=== PATIENT | male | born 1945 | race Caucasian/White ===

== ENCOUNTER 2016-12-22 10:23 | Day surgery (SDC) | payer OTHER ==
[~2016-12-22] VITALS: Ht 165.1 cm; Wt 79.5 kg
[~2016-12-22 10:23] MED LIST: CEFAZOLIN 1000MG/55 ML D5W 55 ML IV SCH; PATIENT'S ALLERGY INFO NEEDS ENTERED SCH; PATIENT'S HEIGHT AND/OR WEIGHT NEEDED SCH
--- NOTE | 2016-12-22 10:40 | History & Physical Bridge Note ---
H&P Re-Evaluation Bridge Note: I have examined the patient, reviewed the History & Physical and in the interval since the performance of the History & Physical I have noted the following changes of clinical significance: No changes noted
[2016-12-22 10:41] VITALS: Ht 165.1 cm; Wt 79.5 kg
[2016-12-22] MEDS ORDERED: BUPIVACAINE 0.5 % 5 MG/1 ML MPF 30ML VIAL ONE (10:41)
[2016-12-22] MEDS ORDERED: BACITRACIN 50000 UNIT VIAL ONE (10:41)
[2016-12-22] MEDS ORDERED: LIDOCAINE HCL 1% 20 ML VIAL ONE (10:41)
--- NOTE | 2016-12-22 10:41 | Procedure Note ---
Pre-Mod Sedation Assessment General Date of Moderate Sedation: Dec 22, 2016. Review Cardiovascular: regular rate, rhythm Abdomen: soft Lungs: lungs clear Airway Class: II Pre-Sedation Airway Assessment Oral Cavity: WNL Able to Visualize Vocal Cords: No Short Thick Neck: No Smoking Status: Former Smoker Mallampati Classification: Class II ASA Classification: Class II Procedure Planning Contraindications-for Mod Sed: None Yes Notes The planned sedation has been discussed with the patient and consent obtained. I have identified the patient, determined the appropriateness of sedation and have assessed the patient immediately prior to the procedure. All medicine(s) and interventions are by my order.
[2016-12-22] MEDS ORDERED: DILT120T3 PO (10:57)
[2016-12-22] MEDS ORDERED: WARF2.5T8 PO (10:57)
[2016-12-22] MEDS ORDERED: METO1TAB69 PO (10:57)
[2016-12-22] MEDS ORDERED: ALBU18002 INH (10:57)
[2016-12-22] MEDS ORDERED: DRON400T PO (10:57)
[2016-12-22] MEDS ORDERED: PANT40TA PO (10:57)
[2016-12-22] MEDS ORDERED: ATOR-22 PO (10:57)
[2016-12-22] MEDS ORDERED: POTA20TA16 PO (10:57)
[2016-12-22] MEDS ORDERED: ASPI81TA28 PO (10:57)
[2016-12-22] MEDS ORDERED: FLVHFA110 INH (10:57)
[2016-12-22] MEDS ORDERED: NTRGSL/4 UT (10:57)
[2016-12-22] MEDS ORDERED: ACET-1311 PO (10:57)
[2016-12-22] MEDS ORDERED: RANI150T3 PO (10:57)
[2016-12-22] MEDS ORDERED: [UNRECOGNIZED DRUG - OTHER] PO (10:57)
[2016-12-22] MEDS ORDERED: FENO67CA2 PO (10:57)
[2016-12-22 11:03] VITALS: BP 138/79; PULSE 60; TEMP 36.8; O2SAT 96
[2016-12-22] MEDS ORDERED: FENTANYL CITRATE INJ 50 MCG/1 ML 2 ML VIAL ONE (11:25)
[2016-12-22] MEDS ORDERED: MIDAZOLAM HCL 5 MG/ML 1 ML VIAL ONE (11:25)
--- NOTE | 2016-12-22 12:09 | [facility] Post Operative Brief Note ---
Immediate Operative Summary Operative Date Dec 22, 2016. Pre-Operative Diagnosis SND, PPM AT KAILEE Post-Operative Diagnosis SAME Procedure(s) Performed DUAL CHAMBER RATE RESPONSIVE PPM GENERATOR CHANGE Surgeon ABHINAV LOPEZ Broth Setter Surgeon(s) NONE Estimated Blood Loss <5CC Findings SEE OFFICIAL REPORT Fluids (cc crystalloids) 200 Specimens NONE Drains NONE Anesthesia 2MG VERSED AND 50MCG FENTANYL Complication(s) None Disposition MTU
--- NOTE | 2016-12-22 12:09 | Procedure Note ---
Post-Mod Sedation Assessment General Date of Moderate Sedation Dec 22, 2016. Vital Signs: Vital Signs Past 12 Hours Date Time Temp Pulse Resp B/P (MAP) Pulse Ox O2 Delivery O2 Flow Rate FiO2 12/22/16 12:01 60 16 111/71 (84) 93 Oxymask 15 12/22/16 11:03 36.8 60 18 138/79 (98) 96 Room Air Review - Discharge Criteria Vital Signs Stable: Yes Alert/Oriented/Conversant: Yes Returned to Baseline Mental St: Yes Nausea Absent/Minimal: Yes Pain/Discomfort/Absent/Minimal: Yes Normal/Baseline Respirations: Yes Active Bleeding?: No Pt Received D/C Instructions: N/A Prescriptions Given: None Specific Proced. D/C Criteria Distal Pulses Present (Cardiac: N/A Groin site assessed-Card Cath: N/A Voided Prior To Discharge: N/A Discharged Patients Adult Escort/Transportation: N/A
--- NOTE | 2016-12-22 12:12 | Discharge Instructions ---
Discharge Instructions Date of Service Dec 22, 2016. Visit Reason for Visit: AFIB Discharge Discharge Diagnosis / Problem: SND, PPM AT KAILEE Discharge Goals Goal(s): Improve function Medications Stopped Medications Name(s): NONE Activity Recommendations Activity Limitations: as noted below Lifting Limitations: no more than 10 pounds (DO NOT LIFT MORE THAN 10 POUNDS WITH THE LEFT ARM FOR 2 WEEKS) Exercise/Sports Limitations: as tolerated May Resume Sexual Activity: after one week Shower/Bathe: tomorrow Driving or Machine Use: resume 1 day after discharge Anesthesia . Post Anesthesia Instructions: If you have had General Anesthesia or IV Sedation: * Do not drive today. * Resume driving when surgeon permits. * Do not make important decisions or sign legal documents today. * Call surgeon for: 1. Temperature elevations greater than 101 degrees F. 2. Uncontrollable pain. 3. Excessive bleeding. 4. Persistent nausea and vomiting. 5. Medication intolerance (nausea, vomiting or rash). * For nausea and vomiting use only clear liquids such as: tea, soda, bouillon until nausea subsides, then gradually increase diet as tolerated. * If you have any concerns or questions, call your surgeon's office. If physician is unavailable and it is an emergency, call 911 or go to the nearest emergency room. . Instructions / Follow-Up Instructions / Follow-Up ACTIVITY RECOMMENDATIONS: * Do not lift more than 10 pounds with the left arm for 2 weeks. SPECIAL CARE INSTRUCTIONS: * If bleeding occurs, apply direct pressure to area for 5 minutes. * Call your doctor if you have severe pain, fever, drainage or bleeding at site. * Keep dry for 24 hours. * Keep any scheduled doctor's appointment. * Implant Card - hand held device with website information given. SKIN IRRITATION: * You may experience some redness and/or swelling in the area where radiation was administered. If any skin irritation occurs, please contact your family physician. FOLLOW UP VISIT: Keep any scheduled doctor appointments. Diet Recommendations Recommended Home Diet: resume previous diet Procedures Procedures Performed: DUAL CHAMBER RATE RESPONSIVE PPM GENERATOR CHANGE Pending Studies Studies pending at discharge: no Medical Emergencies . Who to Call and When: Medical Emergencies: If at any time you feel your situation is an emergency, please call 911 immediately. . Non-Emergent Contact Non-Emergency issues call your: Research Intern . . "Provider Documentation" section prepared by Kena Beckford. .
[2016-12-22 12:20] VITALS: BP 122/76; PULSE 61; TEMP 36.6; O2SAT 96
[2016-12-22 12:34] VITALS: BP 115/60; PULSE 60; O2SAT 94
[2016-12-22 12:53] VITALS: BP 133/74; PULSE 63; TEMP 36.5; O2SAT 96
--- NOTE | 2016-12-22 15:01 | OPERATIVE REPORT ---
DATE OF OPERATION: 12/22/2016 PREOPERATIVE DIAGNOSIS: Sinus node dysfunction and pacemaker at elective replacement indicator. POSTOPERATIVE DIAGNOSIS: Same. PROCEDURE: Dual chamber rate responsive permanent pacemaker generator change. SURGEON: Kena Beckford DO CLEANER AND PRESSER: None. ANESTHESIA: Monitored conscious sedation administered by Usha Li under my supervision, start time 11:40, end time 12:01; total of 2 mg of Versed and 50 mcg of fentanyl. INTRAVENOUS FLUIDS: 200 mL. ESTIMATED BLOOD LOSS: Less than 5 mL. . COMPLICATIONS: None. CONDITION: Stable. URINE OUTPUT: Not applicable. SPECIMENS: None. FINDINGS: See below. DRAINS: None. INDICATIONS: This is a 71-year-old gentleman, who has a past medical history of sinus node dysfunction in which he underwent a permanent pacemaker back in 2008, PAF on Multaq and Coumadin, coronary artery disease, history of an RI with PCI in 2008 to the LAD circumflex and RCA, hypertension, hyperlipidemia, moderate persistent asthma and PVCs. Due to his most recent pacemaker check it was found he had KAILEE and was recommended a generator change. CONSENT: Consent was obtained prior to the patient going into the electrophysiology lab. The patient was informed of risks, benefits and alternatives to the procedure. Risks include but not limited to sudden cardiac , cardiac arrhythmias, cerebrovascular accident, myocardial infarction, , bleeding and infection. The patient understood these risks and agreed to the procedure as planned. Informed consent was obtained. DESCRIPTION OF THE PROCEDURE: The patient was brought into the electrophysiology lab in a fasting state. He was connected to a continuous skate maker. A timeout was performed to ensure patient's identity and procedure correctly. The patient received prophylactic antibiotics prior to incision. He was prepped and draped over the left infraclavicular space in normal surgical standard fashion. Moderate conscious sedation was given throughout the procedure for patient's comfort level under my supervision. Stephens precautions were maintained throughout the procedure. Twenty mL of 1% lidocaine, bupivacaine mixture were given over the prior surgical incision. An incision was made over the prior surgical incision. Blunt dissection was performed down to identify the prior pulse generator. The capsule was disrupted using iris scissors and the pulse generator was freed from the capsule and removed from the body. The leads were tested intraoperatively, see below for results. The capsule was disrupted inferiorly and caudally to allow for new blood flow. The pocket was then flushed with copious amounts of bacitracin saline wash and inspected for hemostasis. The new pulse generator was attached to the leads making sure that the pins were in appropriate position, passed the set screws and the set screws were all tightened. The new pulse generator was then placed in the pocket making sure that the leads were lying flat beneath the device. The incision was then closed in a 3-layer fashion using a 2-0 Vicryl interrupted suture followed by a 3-0 Vicryl interrupted suture followed by a 4-0 Monocryl running stitch and Dermabond was applied. EQUIPMENTS: 1. Explanted generator is [employer], model #S603, serial #[id number] implanted on 06/05/2008. 2. New pulse generator Glass Gallito Neumann [id number], serial # [id number]. 3. Right atrial lead Fineline II model #4469, serial #[id number] implanted on 06/05/2008. 4. Right ventricular lead Fineline II model #4470, serial #[id number] implanted on 06/05/2008. INTRAOPERATIVE TESTIN. Right atrial lead: P-wave 3.1 millivolts, impedance 439 ohms, threshold 0.4 volts at 0.9 milliamps. 2. Right ventricular lead: R-wave 6.9 millivolts, impedance 417 ohms, threshold 0.4 volts at 1.2 milliamps. FINAL MEASUREMENTS THROUGH THE DEVICE: 1. Right atrial lead: P-wave 2.85 millivolts, impedance 361 ohms, threshold 0.5 volts at 0.4 milliseconds. 2. Right ventricular lead: R-wave 9 millivolts, impedance 342 ohms, threshold 0.75 volts at 0.4 milliseconds. FINAL PARAMETERS: MVP-R 60/130. Right atrial amplitude is 1.5 volts, pulse width 0.4 milliseconds, sensitivity 0.3 millivolts. Right ventricular amplitude 1.5 volts, pulse width 0.4 milliseconds, sensitivity 0.9 millivolts and atrial therapies were turned on IMPRESSION: Successful dual chamber rate responsive permanent pacemaker generator change secondary to sinus node dysfunction and pacer at elective replacement indicator. PLAN: Monitor patient post-sedation, continue his home medications. He can shower tomorrow, let water run over the incision, do not scrub it. He is not to lift more than 10 pounds with the left arm for 2 weeks. He should follow up in our [facility] office in 7-10 days for device and wound check. I attest to the content of the Intraoperative Record and any orders documented therein. Any exceptions are noted below. CRYSTAL
== END 2016-12-22 13:05 | disposition home or self-care (01) ==
LOC: C.ACU 10:23
PROVIDERS: ATTEND Internal Medicine
DX: I25.10 Atherosclerotic heart disease of native coronary artery without angina pectoris (principal); I48.0 Paroxysmal atrial fibrillation; I10 Essential (primary) hypertension; E78.5 Hyperlipidemia, unspecified; Z87.442 Personal history of urinary calculi; J45.909 Unspecified asthma, uncomplicated; K76.0 Fatty (change of) liver, not elsewhere classified; Z79.01 Long term (current) use of anticoagulants; Z79.82 Long term (current) use of aspirin; Z86.010 Personal history of colon polyps; K21.9 Gastro-esophageal reflux disease without esophagitis; Z95.818 Presence of other cardiac implants and grafts; Z82.5 Family history of asthma and other chronic lower respiratory diseases; Z83.3 Family history of diabetes mellitus; Z82.49 Family history of ischemic heart disease and other diseases of the circulatory system